=== PATIENT | male | born 1960 | race Caucasian/White ===

== ENCOUNTER 2016-10-23 10:12 | Emergency (ER) | payer BC ==
[2016-10-23 10:18] VITALS: TEMP 99.1
--- NOTE | 2016-10-23 10:37 | EDPHY ---
H & P Time Seen by Provider: 10/23/16 10:33 HPI/ROS: HPI: Mr. Saavedra is a 56 yrs, male who presents with Chief Complaint: Right knee pain Location: Right knee Quality: Pain Duration: Since Sunday Signs and Symptoms: No radiation, no weakness, + mild swelling, no giving out symptoms, no locking symptoms Timing: Sudden Severity: Moderate Context: Patient reports for his job he does a lot of squatting. Noticed 2-3 weeks ago when he woke up some right anterior knee pain and stiffness that resolved over the 2-3 days with anti-inflammatory. On Sunday he climbed on his house to changes from his filter, felt a popping sensation in the posterior portion of his knee and then immediate pain in the area. Pain is worsened with flexion and relieved with extension. Modifying Factors: Aleve moderate relief and using cane Comment: ROS: Eyes: No blurred vision Respiratory: No shortness of breath, no cough Cardiovascular: No chest pain Gastrointestinal: No nausea, no vomiting no diarrhea Genitourinary: No dysuria Extremities: No myalgias Neurologic: No weakness, no numbness Skin: No rashes Hematologic: No bruising, no bleeding MEDICAL/SURGICAL HISTORY: Generally healthy. Takes no medications. Social History: . Smoking Status: Current every day smoker Physical Exam: CONSTITUTIONAL: Pleasant well-appearing adult white male, awake and alert, no obvious distress HEENT: Atraumatic and normocephalic, PERRL, EOMI. Tympanic membranes clear. . Oropharynx clear, no exudate and moist pink mucosa. Airway patent. No lymphadenopathy. No meningismus. Cardiovascular: Normal S1/S2, regular rate, regular rhythm, without murmur rub or gallop. PULMONARY/CHEST: Symmetrical and nontender. Clear to auscultation bilaterally Good air movement. No accessory muscle usage. ABDOMEN: Soft, nondistended, nontender, no rebound, no guarding, no peritoneal signs, no masses or organomegaly. No CVAT. EXTREMITIES: 2/2 pulses, no deformities, no clubbing, no cyanosis or edema. Right knee shows some fullness in the posterior portion, no medial joint line tenderness, stable to varus and valgus stress, no pain with anterior drawer or posterior drawer test. Mild swelling noted. No calf tenderness. Flexion is 90 with pain. Full extension. NEUROLOGICAL: no focal neuro deficits. GCS 15. SKIN: Warm and dry, no erythema. no rash. Good capillary refill. Constitutional: Initial Vital Signs Temperature (C) 37.3 C 10/23/16 10:13 Heart Rate 82 10/23/16 10:13 Respiratory Rate 16 10/23/16 10:13 Blood Pressure 133/86 H 10/23/16 10:13 O2 Sat (%) 95 10/23/16 10:13 O2 Delivery Mode Room Air Allergies/Adverse Reactions: No Known Allergies Allergy (Verified 10/23/16 10:13) Home Medications: Medication Instructions Recorded traMADol [Ultram 50 mg (*)] 50 mg PO Q4 PRN #12 tab 10/23/16 Medical Decision Making - Diagnostics Imaging Results: Imaging Impressions Knee X-Ray 10/23/16 10:27 Impression: 1. No definite acute fracture. 2. Tibiofemoral chondrocalcinosis medially and laterally with calcification of the medial meniscus. 3. Lateral patellar tilt without patellofemoral joint space narrowing. ED Course/Re-evaluation: Right knee x-ray ordered The patient declined pain medication upon arrival. X-ray my read shows no fracture it does show some calcinosis medial and laterally with calcification which seems to be on the medial meniscus. There is also some patellofemoral joint space narrowing. No signs of neurovascular compromise, ligamentous injury, fracture, dislocation. Patient was placed in knee immobilizer given crutches and advised to follow up with orthopedics Differential Diagnosis: Knee injury while [] including but not limited to fracture, ACL injury, contusion, muscular strain, and meniscus injury. Departure - Departure Disposition: Home, Routine, Self-Care Clinical Impression: Patellofemoral arthritis of right knee, Chondrocalcinosis Strain of right knee Qualifiers: Encounter type: initial encounter Qualified Code(s): S86.911A - Strain of unspecified muscle(s) and tendon(s) at lower leg level, right leg, initial encounter Condition: Good Instructions: Knee Pain (ED), Knee Immobilizer (ED), Patellofemoral Pain Syndrome (ED) Referrals: Rip Santiago MD [Primary Care Provider] - As per Instructions Walt Love MD [Medical Doctor] - 5-7 days, if not improved Prescriptions: traMADol [Ultram 50 mg (*)] 50 mg PO Q4 PRN #12 tab PRN Reason: Pain, Moderate
[2016-10-23 12:19] VITALS: BP 103/83; PULSE 71; RESP 18
[2016-10-23 12:21] VITALS: O2SAT 94
== END 2016-10-23 12:19 | disposition home or self-care (01) ==
DX: S86.911A Strain of unspecified muscle(s) and tendon(s) at lower leg level, right leg, initial encounter (principal); M11.261 Other chondrocalcinosis, right knee; M22.2X1 Patellofemoral disorders, right knee; F17.200 Nicotine dependence, unspecified, uncomplicated; X58.XXXA Exposure to other specified factors, initial encounter; Y92.009 Unspecified place in unspecified non-institutional (private) residence as the place of occurrence of the external cause; Y99.8 Other external cause status; Y93.39 Activity, other involving climbing, rappelling and jumping off
CPT/HCPCS: L1830